=== PATIENT | female | born 1980 | race Caucasian/White ===

== ENCOUNTER 2021-07-31 13:54 | Outpatient (CLI) | payer BC, SELFPAY ==
--- NOTE | 2021-07-30 17:00 | LES_PTH ---
PATIENT: YARIEL HOLT LOC: [facility]#:[id number] AGE/SX: 40/F ROOM: RE07/31/[address]: Dr. Leela Yousif DO : 1980 BED: DIS: 07/31/2021 SPEC #: [id number] RECD: 07/31/21 18:41 STATUS: CHRISSIE SUSAN #: [id number] SHELBY: 07/30/21 17:[address]: Leela Yousif DEPT: SURGICAL PATHOLOGY RECD BY: Celi Baird ENTERED: 08/01/21 08:44 SP TYPE: Lesion OTHR DR: Dr. Kamlesh Yung MD Tissues: Skin of neck, NOS Procedures: Surgery Specimen Level IV HEADER OPERATION: Atypical mole removal PRE-OP DIAGNOSIS: Benign neoplasm of skin TISSUE SUBMITTED: Left side neck mole, painful area, dark borders MICROSCOPIC DIAGNOSIS Left side neck mole, biopsy: Seborrheic keratosis with superficial ulceration and associated acute inflammation. See comment. SJ:molly 08/02/2021 COMMENT Melanocytic lesion is not seen in the specimen. Clinical correlation and appropriate follow up are necessary. MICROSCOPIC DESCRIPTION Slides are reviewed. GROSS DESCRIPTION Received is one container labeled with the patient's name and not further designated. The specimen consists of a piece of [place]-white skin measuring 1.5 x 1 x 0.5 cm. The specimen is inked, serially sectioned and submitted entirely in one cassette. / MERARI:molly 08/01/2021 TC:1 CPT: 11369
== END 2021-07-31 23:59 | disposition home or self-care (01) ==
PROVIDERS: PCP Family Medicine; Visit Provider Family Medicine
DX: L82.0 Inflamed seborrheic keratosis (principal)
CPT/HCPCS: 88305